=== PATIENT | female | born 1970 | race Caucasian/White ===

== ENCOUNTER 2018-08-16 19:00 | Emergency (ER) | payer BC, MEDICAID ==
[~2018-08-16] VITALS: Ht 177.8 cm; Wt 80.3 kg
[~2018-08-16 19:00] MED LIST: [UNRECOGNIZED DRUG - CODE] OT
[2018-08-16 20:24] LABS: Urine WBC None Seen /hpf (0 - 5)
[2018-08-16 20:49] LABS: Urine Bacteria NONE SEEN /hpf (None Seen); Urine Blood Negative /uL (Negative); Urine Specific Gravity 1.005 (1.001-1.035)
[2018-08-16 20:57] VITALS: BP 112/72
== END 2018-08-16 21:44 | disposition home or self-care (01) ==
LOC: ER 19:04
DX: N39.0 Urinary tract infection, site not specified (principal); F17.210 Nicotine dependence, cigarettes, uncomplicated; Z79.2 Long term (current) use of antibiotics
CPT/HCPCS: 81001

== ENCOUNTER 2023-03-24 21:15 | Emergency (ER) | payer MEDICAID ==
[~2023-03-24] VITALS: Ht 177.8 cm; Wt 76.5 kg
[2023-03-24 22:21] VITALS: BP 140/79; PULSE 75; RESP 16; TEMP 97.6
[2023-03-25] MEDS ORDERED: KETOROLAC TROMETH 60MG/2ML VIAL IM ONE (00:45)
[2023-03-25] MEDS ORDERED: CYCL-837 PO (00:47)
[2023-03-25] MEDS ORDERED: IBUP-1456 PO (00:47)
[2023-03-25 01:33] VITALS: O2SAT 97
== END 2023-03-25 01:40 | disposition home or self-care (01) ==
LOC: ER 21:15
DX: S39.012A Strain of muscle, fascia and tendon of lower back, initial encounter (principal); Z90.710 Acquired absence of both cervix and uterus; Z79.1 Long term (current) use of non-steroidal anti-inflammatories (NSAID); Z79.2 Long term (current) use of antibiotics; Z79.899 Other long term (current) drug therapy; X58.XXXA Exposure to other specified factors, initial encounter; Y93.89 Activity, other specified; Y92.89 Other specified places as the place of occurrence of the external cause; Y99.8 Other external cause status
CPT/HCPCS: 96372; 99283; J1885

== ENCOUNTER 2023-11-19 23:27 | Emergency (ER) | payer MEDICAID ==
[~2023-11-19] VITALS: Ht 177.8 cm; Wt 72.0 kg
[~2023-11-19 23:27] MED LIST changes: +CYCL-837 PO; +IBUP-1456 PO
[2023-11-20 02:31] VITALS: BP 123/83; PULSE 81; RESP 19; TEMP 98.5; O2SAT 99
[2023-11-20] MEDS: HYDROcodone-ACET 5/325MG TAB PO ONE (02:55)
[2023-11-20] MEDS: KETOROLAC TROMETH 60MG/2ML VIAL IM ONE (02:56)
[2023-11-20] MEDS ORDERED: CYCL-837 PO (03:46)
== END 2023-11-20 04:13 | disposition home or self-care (01) ==
LOC: ER 23:27
DX: S20.211A Contusion of right front wall of thorax, initial encounter (principal); F15.90 Other stimulant use, unspecified, uncomplicated; Z90.710 Acquired absence of both cervix and uterus; Z87.891 Personal history of nicotine dependence; Z79.899 Other long term (current) drug therapy; W18.09XA Striking against other object with subsequent fall, initial encounter; Y93.01 Activity, walking, marching and hiking; Y92.89 Other specified places as the place of occurrence of the external cause; Y99.8 Other external cause status
CPT/HCPCS: 71111; 96372; 99283; J1885